=== PATIENT | female | born 1950 | race Caucasian/White ===

== ENCOUNTER 2017-12-17 12:23 | Day surgery (SDC) | payer OTHER ==
[~2017-12-17] VITALS: Ht 160 cm; Wt 47.2 kg
[2017-12-17] MEDS ORDERED: IBUP100S (12:38)
== END 2017-12-17 14:50 | disposition home or self-care (01) ==
LOC: ORSCSDS 12:23
PROVIDERS: Surgery
PROC: 0DJD8ZZ Inspection of Lower Intestinal Tract, Via Natural or Artificial Opening Endoscopic (ICD-10-PCS; principal; 2017-12-17 13:45)
DX: Z12.11 Encounter for screening for malignant neoplasm of colon (principal)
CPT/HCPCS: J7120

== ENCOUNTER → 2023-03-17 | Outpatient (CLI) | payer OTHER | END | disposition home or self-care (01) | LOC: LAB 12:30 | DX: R30.0 Dysuria (principal) ==

== ENCOUNTER → 2023-04-16 | Outpatient (CLI) | payer OTHER ==
[~2023-04-16] MED LIST: IBUP100S
== END | disposition home or self-care (01) ==
LOC: LAB 14:33 → LAB SHORT 14:33
DX: R30.0 Dysuria (principal)
CPT/HCPCS: 87077; 87086; 87186

== ENCOUNTER → 2023-05-27 | Outpatient (CLI) | payer OTHER | END | disposition home or self-care (01) | LOC: LAB 08:54 → LAB SHORT 08:54 | DX: R30.0 Dysuria (principal); R31.9 Hematuria, unspecified | CPT/HCPCS: 87077; 87086; 87186 ==

== ENCOUNTER → 2023-05-29 | Outpatient (CLI) | payer OTHER ==
[2023-05-30 11:41] LABS: Candida species (DNA Probe) Negative (NEGATIVE); G. vaginalis (DNA Probe) Negative (NEGATIVE); T. vaginalis (DNA Probe) Negative (NEGATIVE)
== END | disposition home or self-care (01) ==
LOC: LAB 13:50 → LAB SHORT 13:50
PROVIDERS: Internal Medicine
DX: N39.0 Urinary tract infection, site not specified (principal); N76.0 Acute vaginitis
CPT/HCPCS: 87480; 87510; 87660

== ENCOUNTER 2024-09-08 06:39 | Day surgery (SDC) | payer OTHER ==
[~2024-09-08] VITALS: Ht 160 cm; Wt 49.1 kg
[~2024-09-08 06:39] MED LIST changes: +ALENDRONAT70 MG/751 PO; +MULTI-VITAMIN1 EAC2 PO; +OLOPATADINE HCL5 ML BOTHEYES
[2024-09-08] MEDS ORDERED: VALA500 PO (07:01)
[2024-09-08] MEDS ORDERED: NS 500 ML IV ONE ×3 (07:10→07:15)
[2024-09-08] MEDS ORDERED: Scopolamine Hydrobromide Patch ONE (07:16)
[2024-09-08] MEDS ORDERED: Lidocaine HCl 2% 10 ML SDA ONE ×2 (07:30→07:50)
[2024-09-08] MEDS ORDERED: propofoL 20 ML IV ONE (07:37)
[2024-09-08] MEDS ORDERED: FentaNYL Citrate 50 MCG/ML 2 ML Injection ONE (08:01)
[2024-09-08] MEDS ORDERED: Ondansetron HCl 2 MG / ML 2ML Vial ONE (08:02)
[2024-09-08] MEDS ORDERED: Dexamethasone Sod Phos 10 MG/ML 1ML VIAL ONE (08:02)
[2024-09-08] MEDS ORDERED: Ketorolac Tromethamine 30mg Vial ONE (08:02)
[2024-09-08] MEDS ORDERED: Lidocaine HCl 2% 10 ML SDA INJ ONE ×2 (08:03)
[2024-09-08 11:42] VITALS: BP 134/79
== END 2024-09-08 09:10 | disposition home or self-care (01) ==
LOC: ORSCSDS 06:39
PROVIDERS: Orthopaedic Surgery
PROC: 0LB60ZZ Excision of Left Lower Arm and Wrist Tendon, Open Approach (ICD-10-PCS; principal; 2024-09-08 08:00)
DX: M67.432 Ganglion, left wrist (principal)
CPT/HCPCS: 88304; A9270; J1100; J1885; J2003; J2405; J2704; J3010; J7040